=== PATIENT | female | born 1960 | race American Indian/Alaskan Native ===

== ENCOUNTER 2017-11-22 07:58 | Day surgery (SDC) | payer OTHER ==
[2017-11-22 08:25] VITALS: BMI 26.6
--- NOTE | 2017-11-22 09:16 | CP.SDSHP ---
Same Day Surgery H & P - History Proposed Procedure: EGD/DILATION Pre-Op Diagnosis: SEE NOTES - Previous Medical/Surgical History Pulmonary: Asthma Endocrine/Metabolic: Other Misc: Other Pain: 4.Moderate Pain Previous Surgical History: ACHALASIA/ EGD WITH DILATION - Allergies Allergies: Allergies iodine Allergy (Severe, Verified 11/22/17 08:24) SHORTNESS OF BREATH RASH; "THROAT CLOSES" shellfish derived Allergy (Severe, Verified 11/22/17 08:24) SHORTNESS OF BREATH RASH; "THROAT CLOSES" SEAFOOD Allergy (Severe, Uncoded 11/27/16 11:59) SHORTNESS OF BREATH RASH; "THROAT CLOSES" - Physical Exam General Appearance: N Vital Signs: Vital Signs 11/22/17 08:43 Temperature 98.9 F Pulse Rate 79 Respiratory 19 Rate Blood Pressure 124/76 O2 Sat by Pulse 99 Oximetry Mental Status: Alert & Oriented x3 Neuro: WNL Heart: WNL Lungs: Other GI: WNL - {Optional Preform as Required} Breast: WNL Abdomen: Other Rectal: Other Integument: WNL : WNL Ortho: WNL ENT: WNL - Impression Pt. Evaluated Today:Candidate for Anesthesia & Procedure: Yes - Date & Time Time: 09:16 Short Stay Discharge - Short Stay Discharge Admitting Diagnosis/Reason for Visit: DYSPHAGIA Disposition: HOME/ ROUTINE
[2017-11-22] MEDS ORDERED: Propofol 10 mg/ml Inj (20 ML) ONE (09:19)
[2017-11-22] MEDS ORDERED: Lidocaine Hydrochloride 5 ML INJ ONE (09:19)
[2017-11-22] MEDS ORDERED: Belladonna-Phenobarbital PO ONE (10:00)
[2017-11-22 10:12] VITALS: TEMP 97.5; O2SAT 100
[2017-11-22 11:18] VITALS: BP 130/75; PULSE 67; RESP 12
== END 2017-11-22 11:10 | disposition home or self-care (01) ==
LOC: C.OPSURG 07:58 → C.ENDO 07:58
PROVIDERS: ATTEND Specialist
DX: R13.14 Dysphagia, pharyngoesophageal phase (principal); B37.81 Candidal esophagitis; K22.0 Achalasia of cardia; K25.9 Gastric ulcer, unspecified as acute or chronic, without hemorrhage or perforation
CPT/HCPCS: 43235; C1726; J0696; J2704; J2765

== ENCOUNTER 2018-05-13 07:24 | Day surgery (SDC) | payer OTHER ==
[2018-01-30 14:29] VITALS: BMI 26.6
--- NOTE | 2018-05-13 08:53 | CP.SDSHP ---
Same Day Surgery H & P - History Proposed Procedure: egd / with dilation Pre-Op Diagnosis: SEE NOTES - Previous Medical/Surgical History Cardiac: Hypertension Pulmonary: Asthma Endocrine/Metabolic: Other Neuro: Other Misc: Other Pain: 4.Moderate Pain Previous Surgical History: CHEST TUBE / EGD - Allergies Allergies: Allergies iodine Allergy (Severe, Verified 11/22/17 08:24) SHORTNESS OF BREATH RASH; "THROAT CLOSES" shellfish derived Adverse Reaction (Verified 01/19/18 15:33) ANAPHYLAXIS SEAFOOD Allergy (Severe, Uncoded 11/27/16 11:59) SHORTNESS OF BREATH RASH; "THROAT CLOSES" - Physical Exam General Appearance: N Vital Signs: Vital Signs 05/13/18 08:06 Temperature 97 F L Pulse Rate 80 Respiratory 20 Rate Blood Pressure 132/65 O2 Sat by Pulse 98 Oximetry Mental Status: Alert & Oriented x3 Neuro: WNL Heart: Other Lungs: Other GI: Other - {Optional Preform as Required} Breast: WNL Abdomen: Other Rectal: Other Integument: WNL : WNL Ortho: Other ENT: WNL - Date & Time Time: 08:53 Short Stay Discharge - Short Stay Discharge Admitting Diagnosis/Reason for Visit: ACHALASIA OF CARDIA Disposition: HOME/ ROUTINE
[2018-05-13] MEDS ORDERED: metroNIDAZOLE IV 500 mg/100 ml 500 MG/100 ML BAG IVPB STA (08:54)
[2018-05-13] MEDS ORDERED: Lactated Ringer's 500 ML IV ONE ×2 (08:56)
[2018-05-13] MEDS ORDERED: Propofol 10 mg/ml Inj (20 ML) ONE (08:59)
[2018-05-13] MEDS ORDERED: Sucralfate 1 gm/10 ml Oral Susp UD PO ONE (09:25)
[2018-05-13 09:43] VITALS: O2SAT 100
[2018-05-13 10:32] VITALS: BP 147/68; PULSE 58; RESP 19; TEMP 97.2
== END 2018-05-13 10:25 | disposition home or self-care (01) ==
LOC: C.ENDO 07:24
PROVIDERS: ATTEND Specialist
DX: K22.0 Achalasia of cardia (principal); R10.13 Epigastric pain; K21.0 Gastro-esophageal reflux disease with esophagitis; I10 Essential (primary) hypertension; J45.909 Unspecified asthma, uncomplicated
CPT/HCPCS: 43233; C1726; J2001; J2704; J2765; J7120

== ENCOUNTER 2018-09-02 07:29 | Day surgery (SDC) | payer OTHER ==
[2018-07-23 13:31] VITALS: BMI 26.6
[2018-09-02 08:23] VITALS: TEMP 98.7
--- NOTE | 2018-09-02 09:35 | CP.SDSHP ---
Same Day Surgery H & P - History Proposed Procedure: EGD / DILATION Pre-Op Diagnosis: SEE NOTES - Previous Medical/Surgical History Cardiac: Hypertension Pulmonary: Asthma Endocrine/Metabolic: Other Misc: Other Pain: 4.Moderate Pain - Allergies Allergies: Allergies iodine Allergy (Severe, Verified 09/02/18 07:50) SHORTNESS OF BREATH RASH; "THROAT CLOSES" shellfish derived Adverse Reaction (Verified 09/02/18 07:50) ANAPHYLAXIS SEAFOOD Allergy (Severe, Uncoded 09/02/18 07:50) SHORTNESS OF BREATH RASH; "THROAT CLOSES" - Physical Exam General Appearance: N Vital Signs: Vital Signs 09/02/18 08:07 Temperature 98.7 F Pulse Rate 80 Respiratory 20 Rate Blood Pressure 93/54 L O2 Sat by Pulse 99 Oximetry Mental Status: Alert & Oriented x3 Neuro: WNL Heart: Other Lungs: WNL GI: Other - {Optional Preform as Required} Breast: WNL Abdomen: Other Rectal: Other Integument: WNL : WNL Ortho: WNL ENT: WNL - Impression Pt. Evaluated Today:Candidate for Anesthesia & Procedure: Yes - Date & Time Time: 09:35 Short Stay Discharge - Short Stay Discharge Admitting Diagnosis/Reason for Visit: ACHALASIA Disposition: HOME/ ROUTINE
[2018-09-02] MEDS ORDERED: Midazolam 2 MG/2 ML VIAL ONE (09:41)
[2018-09-02] MEDS ORDERED: Lactated Ringer's 1,000 ML IV ONE (09:45)
[2018-09-02] MEDS ORDERED: Lidocaine 2% Jelly (Uro-Jet) ONE (09:50)
[2018-09-02] MEDS ORDERED: Lidocaine 4% (Laryng-O-Jet) Kit MM ONE (09:51)
[2018-09-02] MEDS ORDERED: Propofol 10 mg/ml Inj (20 ML) ONE (09:53)
[2018-09-02] MEDS ORDERED: metroNIDAZOLE IV 500 mg/100 ml 500 MG/100 ML BAG IVPB STA (10:40)
[2018-09-02] MEDS ORDERED: Sucralfate 1 gm/10 ml Oral Susp UD PO ONE (10:45)
[2018-09-02 11:13] VITALS: O2SAT 95
[2018-09-02 14:25] VITALS: BP 125/50; PULSE 71; RESP 20
== END 2018-09-02 12:10 | disposition home or self-care (01) ==
LOC: C.ENDO 07:29
PROVIDERS: ATTEND Specialist
DX: K22.0 Achalasia of cardia (principal)
CPT/HCPCS: 43247; J0696; J2250; J2704; J2765; J3010; J7120

== ENCOUNTER 2018-09-16 07:22 | Day surgery (SDC) | payer OTHER ==
[2018-09-15 11:13] VITALS: BMI 23.8
[2018-09-16] MEDS ORDERED: Lactated Ringer's 1,000 ML IV ONE (08:30)
--- NOTE | 2018-09-16 08:31 | CP.SDSHP ---
Same Day Surgery H & P - History Proposed Procedure: EGD / DILATION Pre-Op Diagnosis: SEE NOTES - Previous Medical/Surgical History Cardiac: Hypertension Pulmonary: Emphysema/COPD Endocrine/Metabolic: Other Misc: Other Pain: 4.Moderate Pain - Allergies Allergies: Allergies iodine Allergy (Severe, Verified 09/16/18 07:57) SHORTNESS OF BREATH RASH; "THROAT CLOSES" shellfish derived Adverse Reaction (Verified 09/16/18 07:57) ANAPHYLAXIS SEAFOOD Allergy (Severe, Uncoded 09/16/18 07:57) SHORTNESS OF BREATH RASH; "THROAT CLOSES" - Physical Exam General Appearance: N Vital Signs: Vital Signs 09/16/18 09/16/18 07:45 08:02 Temperature 97.5 F L Pulse Rate 87 87 Respiratory 20 Rate Blood Pressure 133/880 H O2 Sat by Pulse 98 Oximetry Mental Status: Alert & Oriented x3 Neuro: WNL Heart: Other Lungs: Other GI: Other - {Optional Preform as Required} Breast: WNL Abdomen: Other Rectal: Other Integument: WNL : WNL Ortho: Other ENT: WNL - Impression Pt. Evaluated Today:Candidate for Anesthesia & Procedure: Yes - Date & Time Time: 08:32 Short Stay Discharge - Short Stay Discharge Admitting Diagnosis/Reason for Visit: DYSPHAGIA Disposition: HOME/ ROUTINE
[2018-09-16] MEDS ORDERED: Propofol 10 mg/ml Inj (20 ML) ONE (08:32)
[2018-09-16] MEDS ORDERED: metroNIDAZOLE IV 500 mg/100 ml 500 MG/100 ML BAG IVPB STA (08:33)
[2018-09-16 09:09] VITALS: TEMP 98.6
[2018-09-16 09:16] VITALS: O2SAT 100
[2018-09-16 09:39] VITALS: RESP 19
[2018-09-16 09:58] VITALS: BP 123/65; PULSE 68
== END 2018-09-16 09:55 | disposition home or self-care (01) ==
LOC: C.SDS 07:22 → C.ENDO 07:22
PROVIDERS: ATTEND Specialist
DX: K22.0 Achalasia of cardia (principal); I10 Essential (primary) hypertension; J43.9 Emphysema, unspecified
CPT/HCPCS: 43249; C1726; J2001; J2704; J2765; J3010; J7120

== ENCOUNTER 2019-01-01 08:24 | Outpatient (CLI) | payer OTHER | END 2019-01-01 08:25 | disposition home or self-care (01) | LOC: C.RADH 08:24 | DX: R13.10 Dysphagia, unspecified (principal) ==